=== PATIENT | female | born 1975 | race Caucasian/White ===

== ENCOUNTER → 2016-08-01 15:35 | Outpatient (CLI) | payer OTHER ==
[2012-10-28 10:26] VITALS: BMI 24.6
[~2016-08-01 15:35] MED LIST: AMBIEN10 MG PO; EZFE 200200 MG PO; PRISTIQ50 MG PO; SYNTHROID75 MCG PO
== END | disposition home or self-care (01) ==
LOC: D.MAMMO 08:00
DX: Z12.31 Encounter for screening mammogram for malignant neoplasm of breast (principal)

== ENCOUNTER 2018-05-31 02:03 | Emergency (ER) | payer SELFPAY ==
[~2018-05-31] VITALS: Ht 172.7 cm; Wt 77.1 kg
[2018-05-31 02:06] VITALS: Ht 172.7 cm; Wt 77.1 kg
[2018-05-31] MEDS ORDERED: ADDERALL 20 MG20 M1 PO (02:08)
[2018-05-31] MEDS ORDERED: TORADOL10 MG PO (02:26)
[2018-05-31] MEDS ORDERED: AMOXICILLIN500 M1 PO (02:26)
[2018-05-31 02:41] VITALS: BP 151/81
== END 2018-05-31 02:43 | disposition home or self-care (01) ==
LOC: D.ER 02:03
DX: K08.89 Other specified disorders of teeth and supporting structures (principal)